=== PATIENT | female | born 1965 | race Caucasian/White ===

== ENCOUNTER 2016-06-14 20:19 | Emergency (ER) | payer OTHER ==
[~2016-06-14] VITALS: Ht 162.6 cm; Wt 81.8 kg
--- NOTE | 2016-06-14 20:27 | ED.REPORT ---
HPI-Altered Mental Status Date of Service Jun 14, 2016 ED Provider: Alberto Handy MD 51 year old female with a history of schizophrenia presents to the ER via EMS due to altered mental status. Per EMS report, the manager of business refused to let the patient on the bus due to her mental status, and subsequently called 911. She currently complains of subjective fever, nausea, vomiting, and diarrhea for the past several days. Patient denies chest pain, abdominal pain, headache, and any significant underlying medical conditions. History is limited due to patient's mental status. Upon further review and investigation of paperwork that the patient had on her person I found a paper indicating that the patient was supposed to go to [facility], [place] today. We called the center and staff confirmed that they were expecting her. Nursing Notes Stated Complaint: ALTERED MENTAL STATUS Nursing Notes Reviewed: Yes Allergies: Coded Allergies: No Known Allergies (Unverified , 06/14/16) General Time Seen by MD: 20:26 Chief Complaint Confused, Decreased alertness, Decreased responsiveness Hx Obtained From: Patient, EMS Arrived By: Ambulance Sudden in Onset?: No Onset Occurred: 3 days ago Symptom Duration: Since onset Associated with: Reports: Diarrhea, Fever, Nausea, Vomiting Risk Factors Blanchard Coma Score > Age 5 Eye Opening: Open to verbal (3) Verbal Response: Oriented (5) Motor Response: Obeys commands (6) Blanchard Coma Score: 14 Past Medical History Past Medical History Notes: Son: Jeffrey Eason Mother: Krystle Thompson Past Medical History Schizophrenia Sleep apnea on CPAP Denies: COPD, Congestive heart failure, Coronary artery disease, Diabetes mellitus, Hypertension Denies: Atrial fibrillation, Kidney disease, Renal failure, Renal insufficiency Smoking History Unknown if Ever Smoker Social History Works at [employer] Alcohol Use: Denies alcohol use Drug Use: Denies drug use Review of Systems Constitutional: Reports: Fever Cardiovascular: Denies: Chest pain GI: Reports: Diarrhea, Nausea, Vomiting, Denies: Abdominal pain Neurologic: Reports: Slurred speech, Denies: Headache Psychiatric: Reports: Change mental status Complete sys rev & neg: except as marked. Physical Exam Initial Vital Signs Vital Signs (First) Date Time Temp Pulse Resp B/P Pulse Ox O2 Delivery O2 Flow Rate FiO2 06/14/16 20:31 36.7 112 31 151/125 90 Room Air 06/14/16 21:42 3 Initial VS: Reviewed Abdomen / GI: Soft, Non-tender, No guarding, No rebound, No distention Extremities: Vascular intact, Neuro intact, No swelling, No tenderness Skin: Warm, Dry, No cyanosis General/Constitutional: Awake, Alert, Well developed, Well nourished Sleepy, but conversational. Head / Eyes: Atraumatic, Normocephalic Neck: Atraumatic, Supple, No meningismus, Full range of motion, No swelling, Non-tender, No midline vertebral tend, No masses, No carotid bruit, Thyroid NL Respiratory / Chest: Breath sounds NL, Breath sounds = bilat, No respiratory distress, No rales, No rhonchi, No wheezing Cardiovascular: Heart rate NL, Regular rhythm, Heart sounds NL, Peripheral circulation NL Neurologic: Oriented X3, No motor deficits, No sensory deficits Mental Status: Positive: Responds to verbal stim, Somnolent Speech: Positive: Slurred Interpretation & Diagnostics Lab Results Interpretation Result Diagram: 06/14/16210706/14/162107 Test 06/14/16 20:58 06/14/16 21:08 Urine Color Yellow (YELLOW) Urine Appearance Clear (CLEAR,HAZY) Urine pH 6.0 (5.0-8.0) Urine Specific [place] 1.020 (1.003-1.035) Urine Protein Negativemg/dL (NEG,TRACE) Urine Glucose (UA) Negativemg/dL (NEGATIVE) Urine Ketones Tracemg/dL (NEGATIVE) Urine Occult Blood Trace (NEGATIVE) Urine Nitrite Negative (NEGATIVE) Urine Bilirubin Negative (NEGATIVE) Urine Urobilinogen Normalmg/dL (NORMAL) Urine Leukocyte Esterase Negative (NEGATIVE) Urine RBC 0-2/hpf (0-2) Urine WBC 0-5/hpf (0-5) Urine Epithelial Cells Few/hpf (NONE-MOD) Urine Crystals None seen (NONE SEEN) Urine Bacteria None/hpf (NONE-FEW) Urine Hyaline Casts None/lpf (NONE) Urine Granular Casts None seen (NONE SEEN) Urine Waxy Casts None seen (NONE SEEN) Urine Red Blood Cell Casts None seen (NONE SEEN) Urine White Blood Cell Casts None seen (NONE SEEN) Urine Mucus None seen (None Seen) Urine Trichomonas None seen (NONE SEEN) Urine Yeast None (NONE SEEN) Urinalysis Comment None Urine Culture Reflexed Not indicated White Blood Count 11.5th/mm3 (3.8-10.1) Red Blood Count 4.86mil/mm3 (3.90-5.20) Hemoglobin 14.2g/dL (12.0-15.6) Hematocrit 44.6% (35.0-46.0) Mean Corpuscular Volume 91.8fL (81-100) Mean Corpuscular Hemoglobin 29.2pg (27.0-35.0) Mean Corpuscular Hemoglobin Concent 31.8% (32.0-37.0) Red Cell Distribution Width 15.1% (12.3-15.4) Platelet Count 309bil/L (150-400) Neutrophils (%) (Auto) 69.6% (40-74) Lymphocytes (%) (Auto) 20.1% (14-46) Monocytes (%) (Auto) 8.5% (4-12) Eosinophils (%) (Auto) 0.7% (0-5) Basophils (%) (Auto) 0.3% (0-3) Sodium Level 137mEq/L (134-144) Potassium Level 4.3mEq/L (3.5-5.2) Chloride Level 99mEq/L (97-108) Carbon Dioxide Level 24mmol/L (18-29) Blood Urea Nitrogen 16mg/dL (6-24) Creatinine 0.55mg/dL (0.57-1.00) Estimat Glomerular Filtration Rate 166mL/min (>59) Glucose Level 100mg/dL (60-99) Calcium Level 9.1mg/dL (8.5-10.1) Magnesium Level 2.0mg/dL (1.6-2.6) Total Bilirubin 0.2mg/dL (0.0-1.2) Aspartate Amino Transf (AST/SGOT) 14U/L (0-50) Alanine Aminotransferase (ALT/SGPT) 15U/L (0-32) Alkaline Phosphatase 53U/L (25-150) Total Protein 7.4g/dL (6.4-8.4) Albumin 4.2g/dL (3.4-5.0) Hold Coker Top Tube Received (Received) Salicylates Level < 3.0ug/mL (30-250) Acetaminophen Level < 15.0ug/mL Rx (10-25) Alcohol, Quantitative < 10mg/dL (0-10) ECG Interpretation ECG Interpretation: Sinus tachycardia, rate 117 Time: 21:16 Interpreted by: ED physician X-Ray Chest Interpretation Chest Xray Interpretation: IMPRESSION: No acute cardiopulmonary findings. Dictated by: Taina Bolivar M.D. on 06/14/2016 at 21:10 Approved by: Taina Bolivar M.D. on 06/14/2016 at 21:10 View: Portable, 1 view Interpretation / Wet Read by: Interpret - Radiologist Re-Eval/Medical Decision Med Decision/Clinical Course After further investigation we were able to determine that in fact she was on her way to [facility] but she seems to altered for the manager of business to feel comfortable transporting her. We did a pretty early evaluation here and she remains alert and able to speak but when left alone she gets very sleepy and seems kind of drunk. She is consistently alert to voice though and will follow commands and is essentially oriented as well. 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 I think it is safe for her to go to [facility] where she is slated to undergo detoxification and substance abuse treatment. There is no evidence of head injury at this time. Re-Evaluation/Progress : Time of Eval: 22:03 Re-Evaluation/Progress Note: Patient is able to tell me that we are in [place], but is unable to identify that she is in the emergency department. Oriented to month and year, but not the specific date. She now states that she went down to [place] via bus today from [place] to visit her son. Discussed lab and radiology results. Consultation : Call Returned at: 22:11 Note: Attempted to call the patient's mother at the number she provided. Fast beep response. Does not appear to be a valid phone number. Counseled Regarding: Diagnosis, Lab results, Need for follow-up, When/why to return to ED Patient Discharge & Departure Impression: Primary Impression: Bizarre behavior Disposition: Home Discharge Condition All VS Reviewed: Yes Condition: Stable Scribe Attestation Portions of this note were transcribed by Pan Elizabeth. I, Dr. Handy, personally performed the history, physical exam and medical decision-making; I reviewed and confirmed the accuracy of the information in the transcribed note. Signed by: Burak Kent, 06/14/2016 and 23:17 Alberto Handy MD Jun 14, 2016 20:27 PAN ELIZABETH Jun 14, 2016 20:37
[2016-06-14 20:31] VITALS: BP 151/125; PULSE 112; RESP 31; O2SAT 90
[2016-06-14 21:07] LABS: APPEARANCE,URINE CLEAR (CLEAR,HAZY); COLOR,URINE YELLOW (YELLOW); OCCULT BLOOD,URINE TRACE (NEGATIVE); UROBILINOGEN,URINE NORMAL (NORMAL)
--- NOTE | 2016-06-14 21:12 | DRSVH ---
PROCEDURE: X-RAY CHEST ONE VIEW, PORTABLE ([id number]) INDICATIONS: confusion TECHNIQUE: One view of the chest was acquired. COMPARISON: None. FINDINGS: Patient is slightly rotated. Surgical changes and devices: None. Lungs and pleura: No pleural effusions or pneumothorax. Lungs are clear. Mediastinum: Mediastinal contours appear normal. Heart size is normal. Bones and chest wall: No suspicious bony lesions. Overlying soft tissues appear unremarkable. IMPRESSION: No acute cardiopulmonary findings. Dictated by: Taina Bolivar M.D. on 06/14/2016 at 21:10 Approved by: Taina Bolivar M.D. on 06/14/2016 at 21:10
[2016-06-14 21:16] LABS: BASOPHILS % (AUTO) 0.3 % (0-3); EOSINOPHILS % (AUTO) 0.7 % (0-5); MONOCYTES % (AUTO) 8.5 % (4-12); Mean Corpuscular Hemoglobin 29.2 pg (27.0-35.0); Mean Corpuscular Volume 91.8 fL (81-100); NEUTROPHILS % (AUTO) 69.6 % (40-74); Platelet Count 309 bil/L (150-400)
[2016-06-14 21:42] VITALS: BP 123/68; PULSE 115; RESP 24; O2SAT 92
[2016-06-14] MEDS ORDERED: LORazepam 2 mg Tablet PO ONE (22:05)
[2016-06-14] MEDS ORDERED: 0.9% Sodium Chloride 1,000 ML IV ONE (22:05)
[2016-06-14 23:20] VITALS: BP 118/69; PULSE 113; RESP 24; O2SAT 92
== END 2016-06-14 23:40 | disposition home or self-care (01) ==
LOC: SED 20:19 → EDBD 20:19 → SED 23:40
DX: R46.1 Bizarre personal appearance (principal); R50.9 Fever, unspecified; R11.2 Nausea with vomiting, unspecified; R19.7 Diarrhea, unspecified; F20.9 Schizophrenia, unspecified
CPT/HCPCS: 36415; 71010; 80053; 81000; 81002; 81025; 83735; 85025; 93005; 96360; 99285; G0480; J7030